=== PATIENT | female | born 1980 | race African-American/Black ===

== ENCOUNTER 2016-09-24 00:49 | Emergency (ER) | payer SELFPAY ==
[~2016-09-24] VITALS: Ht 170.2 cm; Wt 72.2 kg
[2016-09-24 01:45] LABS: MCH 26.8 PG (29.0-34.0); MCV 86.3 FL (83-99); MEAN PLAT.VOLUME 10.7 uM^3 (9.5-12.4); PLATELET COUNT 418 K/uL (156-360); RBC DIS.WIDTH-CV 13.5 % (11.8-14.6); RBC DIS.WIDTH-SD 41.3 % (39-53); RED BLOOD COUNT 3.36 M/uL (3.80-5.20); WHITE BLOOD COUNT 7.1 K/uL (4.1-10.2)
[2016-09-24 01:51] LABS: ADD MIUA? YES; BILIRUBIN NEGATIVE; BLOOD LARGE; COLOR YELLOW ((YELLOW)); GLUCOSE (STRIP) NEGATIVE; KETONES NEGATIVE; LEUKOCYTES NEGATIVE; NITRITE NEGATIVE; PH, URINE 6.5 (5-8); PROTEIN (STRIP) NEGATIVE; SPECIFIC GRAVITY 1.018 (1.000-1.030)
[2016-09-24 01:56] LABS: CHLORIDE 105 mEq/L (99-109); POTASSIUM 3.8 mEq/L (3.7-5.4); SODIUM 138 mEq/L (136-147)
[2016-09-24 01:57] LABS: GLUCOSE 100 mg/dL (70-99)
[2016-09-24 01:59] LABS: ANION GAP 8 MEQ/L (2-14)
[2016-09-24 02:01] LABS: GFR ESTIMATE (CALCULATED) > 59 mL/min/
[2016-09-24 02:02] LABS: UREA NITROGEN (BUN) 11 mg/dL (9-23)
[2016-09-24 02:09] LABS: BACTERIA RARE; CASTS NONE SEEN /LPF; CRYSTALS NONE SEEN; EPITHELIAL CELLS RARE; MUCUS NONE SEEN; RED BLOOD CELLS 20-30 /HPF (0-5); UCUL ADDED? NO; WHITE BLOOD CELLS 0-5 /HPF (0-5)
[2016-09-24 02:09] LABS: QUANTITATIVE HCG < 4.0 MIU/ML
[2016-09-24] MEDS ORDERED: BENTYL10 MG PO (02:51)
[2016-09-24 02:53] VITALS: BP 126/70
== END 2016-09-24 03:03 | disposition home or self-care (01) ==
LOC: EME 00:49
PROVIDERS: Physician Assistant
DX: R10.9 Unspecified abdominal pain (principal)
CPT/HCPCS: 74176; 80048; 81003; 84702; 85027; 99281; 99284